=== PATIENT | female | born 1995 | race African-American/Black ===

== ENCOUNTER 2019-10-03 09:11 | Emergency (ER) | payer MEDICAID ==
[~2019-10-03] VITALS: Ht 165.1 cm; Wt 82.0 kg
[2019-10-03] MEDS ORDERED: HYDROXYZINE 25MG TABLET PO ONE (11:00)
[2019-10-03 13:09] VITALS: BP 118/74
== END 2019-10-03 13:11 | disposition home or self-care (01) ==
LOC: ER 09:11
DX: R21 Rash and other nonspecific skin eruption (principal); F12.10 Cannabis abuse, uncomplicated
CPT/HCPCS: 99283